=== PATIENT | female | born 2000 ===

== ENCOUNTER 2022-11-15 10:34 | Inpatient (IN) | payer SELFPAY ==
[~2022-11-15] VITALS: Ht 154.9 cm; Wt 54.2 kg
[2022-11-15] VITALS (9 sets, daily range): BP systolic 96–122; BP diastolic 42–80
[2022-11-15] MEDS: LACTATED RINGERS 1,000 ML IV SCH ×2 (11:30→12:20)
--- NOTE | 2022-11-15 12:31 | Diagnostic Imaging Report ---
INDICATION: No care, uncertain size and dates, contractions. TECHNIQUE: Multiple real-time grayscale images were obtained over the gravid uterus. COMPARISON: None Hemphill gestation has measurements correlate with an age 36 week 2 day sonographic date of confinement 12/11/2022 it is in cephalic position. There is a MIKAELA of 8.8 with the zac-fundal placenta appearing normal. No abruption or previa with regular heart rate 142 bpm. head results in shadowing artifact obscuring from visualization a confident measurement of the cervical canal. No pathological finding identified. IMPRESSION: 36 week 2 day hemphill viable IUP in cephalic position. Biometrical measurements are as follows: Biparietal 8.92 cm, age 36 weeks 1 days. Head circumference 31.47 cm, age 35 weeks 3 days. Abdominal circumference 31.61 cm, age 35 weeks 4 days. Femur length 7.34 cm, age 37 weeks 4 days. Sonographic estimate age: 36 weeks 2 days. Sonographic estimated date of delivery: 12/11/2022. Estimated Weight: 2850 gm (+/- 415 gm). LMP percentile: N/A%. heart rate: 142 beats per minute. number: 1 of 1. Dictated by: Dictated on workstation # [id number]
[2022-11-15] MEDS ORDERED: TERBUTALINE INJ 1 MG/ML (BRETHINE) AMP SC ONE ×2 (13:00→14:45)
[2022-11-15 13:36] LABS: BASOPHILS % (AUTO) 1 % (0-10); EOSINOPHILS # (AUTO) 0.4 10^3/uL (0.0-0.3); EOSINOPHILS % (AUTO) 5 % (0-10); HEMATOCRIT 30 % (35-52); HEMOGLOBIN 9.7 g/dL (11.5-16.0); LYMPHOCYTES % (AUTO) 24 % (12-44); MEAN CORPUSCULAR HEMOGLOBIN 25 pg (25-34); MEAN CORPUSCULAR HGB CONC 32 g/dL (32-36); MEAN CORPUSCULAR VOLUME 77 fL (80-99); MEAN PLATELET VOLUME 10.1 fL (9.0-12.2); MONOCYTES # (AUTO) 0.7 10^3/uL (0.0-1.0); MONOCYTES % (AUTO) 9 % (0-12); NEUTROPHILS # (AUTO) 5.1 10^3/uL (1.8-7.8); NEUTROPHILS % (AUTO) 62 % (42-75); PLATELET COUNT 249 10^3/uL (130-400); WHITE BLOOD COUNT 8.3 10^3/uL (4.3-11.0)
[2022-11-15] MEDS ORDERED: TERBUTALINE INJ 1 MG/ML (BRETHINE) AMP ONE (14:42)
--- NOTE | 2022-11-15 18:05 | History & Physical-OB ---
OB - Chief Complaint & HPI Date/Time Date of Admission: Date of Admission: Date seen by a Provider: Nov 15, 2022 Time Seen by a Provider: 18:00 Chief Complaint/History OB-Reason for Admission/Chief: Onset of Labor Hx : 2 Hx Para: 1 Expected Date of Delivery: Nov 23, 2022 Other with language barrier, and history of with first presented with contractions. She initially was thought to have no care and unknown dates and US was done which showed 36w2d, however, later she did report she had one visit in [place] around 7 months she thinks and had US and was given due date of Nov 23. She started having contractions this morning, denies other concerns. Allergies and Home Medications Allergies Coded Allergies: No Known Drug Allergies (Unverified , 11/15/22) Patient Home Medication List Home Medication List Reviewed: Yes OB - History Hx of Present Care: No Obstetrical Complications: None (limited/no care) Information Induced Hypertension: No Maternal Gestational Diabetes: No Hemorrhage: No Obstetrical History Hx : 2 Hx Para: 1 Hx # Term Pregnancies: 1 Hx # Pregnancies: 0 Number of Living Children: 1 Hx Termination: No Hx Total # of Abortions (Spona: 0 Hx Multiple Gestation: No Hx Ectopic : No Hx Stillbirth: No Hx Complication: No Hx Induced Hypertens: No Hx Maternal Gestational Diabet: No Hx Hemorrhage: No Delivery History Hx Dystocia: No Hx Forceps Assisted Delivery: No Hx Vacuum Extraction Assisted: No Hx Placenta Abnormality: No Hx Distress: No Hx Large For Gestational Age I: No Hx Small for Gestational Age I: No Hx Section: Yes Hx Vaginal Delivery Post C-Sec: No Hx Blood Disorders: No Adverse Rxn to Tranfusion: No Patient Past Medical History PMHx: Denies PSurgHx: Social History/Family History Alcohol Use: Denies Use Recreational Drug Use: No Smoking Cessation: Never smoker Immunizations Influenza Vaccine Up-to-Date: No; Not Current Rubella: unknown RPR/VDRL: Unknown GBS Status: Unknown HBsAG: Unknown OB - Admission Exam Physical Exam Vitals: Vital Signs 11/15/22 11:08 Temp 36.7 Pulse 83 Resp 18 B/P (MAP) 119/80 Pulse Ox 99 O2 Delivery Room Air HEENT: NCAT Abdomen: Non tender Extremities: Normal Cervical Dilatation: 3cm (per nursing exam) Accelerations: Accelerations Present Decelerations: No Decelerations Short Term Variability: Present Cinder Block Maker Variability: Average (6-25) Contractions on Admission: < 5 Minutes Apart Labs Laboratory Tests Test 11/15/22 11:30 11/15/22 13:50 Range/Units White Blood Count 8.3 4.3-11.0 10^3/uL Red Blood Count 3.92 3.80-5.11 10^6/uL Hemoglobin 9.7 L 11.5-16.0 g/dL Hematocrit 30 L 35-52 % Mean Corpuscular Volume 77 L 80-99 fL Mean Corpuscular Hemoglobin 25 25-34 pg Mean Corpuscular Hemoglobin Concent 32 32-36 g/dL Red Cell Distribution Width 14.2 10.0-14.5 % Platelet Count 249 130-400 10^3/uL Mean Platelet Volume 10.1 9.0-12.2 fL Immature Granulocyte % (Auto) 1 % Neutrophils (%) (Auto) 62 42-75 % Lymphocytes (%) (Auto) 24 12-44 % Monocytes (%) (Auto) 9 0-12 % Eosinophils (%) (Auto) 5 0-10 % Basophils (%) (Auto) 1 0-10 % Neutrophils # (Auto) 5.1 1.8-7.8 10^3/uL Lymphocytes # (Auto) 2.0 1.0-4.0 10^3/uL Monocytes # (Auto) 0.7 0.0-1.0 10^3/uL Eosinophils # (Auto) 0.4 H 0.0-0.3 10^3/uL Basophils # (Auto) 0.0 0.0-0.1 10^3/uL Immature Granulocyte # (Auto) 0.1 0.0-0.1 10^3/uL Thyroid Stimulating Hormone (TSH) 1.73 0.35-4.94 UIU/ML OB - Assessment/Plan/Diagnosis Assessment Admission Dx Labor Admission Status: Inpatient Order (span 2 midnights) Reason for Inpatient Admission: Labor Plan Plan: Section Other Plan Pt initially 2 cm on arrival, had some slowing of contractions with fluid and terbutaline, but progressed to 3 cm and continues to contract. Discussed with Dr. Shipley and plan to proceed with repeat . Milk Pickup Driver notified as well due to uncertain dates. All routine Ob labs pending, drawn today. JONG HARRIS MD Nov 15, 2022 18:04
[2022-11-15] MEDS ORDERED: ceFAZolin INJECTION 1,000 MG VIAL IV ONE (18:15)
[2022-11-15] MEDS ORDERED: CITRIC ACID/SOB CIT (BICITRA) 30 ML UDC ONE (18:19)
[2022-11-15] MEDS ORDERED: METOCLOPRAMIDE INJ 10 MG/2 ML (REGLAN) ONE (18:19)
[2022-11-15] MEDS ORDERED: FAMOTIDINE 20MG/2ML IV (PEPCID) ONE (18:19)
[2022-11-15] MEDS ORDERED: ceFAZolin INJECTION 2,000 MG ONE (18:19)
[2022-11-15] MEDS ORDERED: NS (IVPB) 50 ML ONE (18:19)
[2022-11-15] MEDS ORDERED: CATHETER FLUSH 10 ML SYR IV PRN (18:30)
[2022-11-15] MEDS ORDERED: LACTATED RINGERS 1,000 ML IV PRN (18:30)
[2022-11-15] MEDS ORDERED: METOCLOPRAMIDE INJ 10 MG/2 ML (REGLAN) IV ONE (18:30)
[2022-11-15] MEDS ORDERED: CITRIC ACID/SOB CIT (BICITRA) 30 ML UDC PO ONE (18:30)
[2022-11-15] MEDS ORDERED: ONDANSETRON 4 MG/2 ML (SDV) Z0FRAN ONE (18:40)
[2022-11-15] MEDS ORDERED: fentaNYL INJ 100 MCG/2 ML AMP ONE (18:41)
[2022-11-15] MEDS ORDERED: FAMOTIDINE 20MG/2ML IV (PEPCID) IV ONE (18:45)
--- NOTE | 2022-11-15 18:55 | History & Physical-Surgical ---
HPO-Surgical History of Present Illness Chief Complaint: 38 week patient by 2nd trimester US presented in active labor, and has history of previous . She was admitted by Dr. Brooks, where labor was attempted to be stopped without success. Diagnosis/Surgical Indication: Active labor, prior Procedure: Repeat Date of Surgery: Nov 15, 2022 Allergies and Home Medications Allergies Coded Allergies: No Known Drug Allergies (Unverified , 11/15/22) Patient Home Medication List Home Medication List Reviewed: Yes Past Dqcunvv-Dhnhfh-Sztiph Hx Patient Social History Smoking Status: Never a Smoker Reproductive System Expected Date of Delivery: Nov 23, 2022 Hx : 2 Hx Para: 1 Hx Total # of Abortions (Spona: 0 Blood Transfusions Adverse Reaction to a Blood Tr: No Exam Vital Signs Vital Signs 11/15/22 11:08 Temp 36.7 Pulse 83 Resp 18 B/P (MAP) 119/80 Pulse Ox 99 O2 Delivery Room Air Capillary Refill : Less Than 3 Seconds Labs Laboratory Tests Test 11/15/22 11:30 11/15/22 13:50 Range/Units White Blood Count 8.3 4.3-11.0 10^3/uL Red Blood Count 3.92 3.80-5.11 10^6/uL Hemoglobin 9.7 L 11.5-16.0 g/dL Hematocrit 30 L 35-52 % Mean Corpuscular Volume 77 L 80-99 fL Mean Corpuscular Hemoglobin 25 25-34 pg Mean Corpuscular Hemoglobin Concent 32 32-36 g/dL Red Cell Distribution Width 14.2 10.0-14.5 % Platelet Count 249 130-400 10^3/uL Mean Platelet Volume 10.1 9.0-12.2 fL Immature Granulocyte % (Auto) 1 % Neutrophils (%) (Auto) 62 42-75 % Lymphocytes (%) (Auto) 24 12-44 % Monocytes (%) (Auto) 9 0-12 % Eosinophils (%) (Auto) 5 0-10 % Basophils (%) (Auto) 1 0-10 % Neutrophils # (Auto) 5.1 1.8-7.8 10^3/uL Lymphocytes # (Auto) 2.0 1.0-4.0 10^3/uL Monocytes # (Auto) 0.7 0.0-1.0 10^3/uL Eosinophils # (Auto) 0.4 H 0.0-0.3 10^3/uL Basophils # (Auto) 0.0 0.0-0.1 10^3/uL Immature Granulocyte # (Auto) 0.1 0.0-0.1 10^3/uL Thyroid Stimulating Hormone (TSH) 1.73 0.35-4.94 UIU/ML General Appearance: Alert, Oriented X3 HEENT: Atraumatic Respiratory: Clear to Auscultation Cardiovascular: Regular Rate Abdominal: Normal Bowel Sounds Psych/Mental Status: Other (language barrier, side show entertainer used) Assessment/Plan Admission Diagnosis Diagnosis: 22 yo @ 38 weeks by 2nd trimester US Previous No care GBS unknown P: Repeat Admission Status: Inpatient Order (span 2 midnights) IRIS LASSITER DO Nov 15, 2022 18:55
[2022-11-15] MEDS: LACTATED RINGERS 1,000 ML IV PRN ×2 (19:05→19:53)
[2022-11-15] MEDS ORDERED: BUPIVACAINE 0.5% 30 ML (SENSORCAINE) VIAL ONE (19:29)
[2022-11-15] MEDS ORDERED: PHENYLEPHRINE 100 MCG/ML 10 ML (ANESTHESIA) SYR ONE (19:30)
[2022-11-15] MEDS ORDERED: OXYTOCIN PRE-MIX DRIP 1,000 ML IV ONE (19:31)
[2022-11-15] MEDS ORDERED: KETOROLAC 30 MG/ML VIAL ONE (20:02)
[2022-11-15] MEDS: KETOROLAC 30 MG/ML VIAL IV SCH (20:04)
[2022-11-15] MEDS ORDERED: NALOXONE 0.4 MG/ML 1 ML (NARCAN) VIAL IV PRN (20:15)
[2022-11-15] MEDS ORDERED: HYDROcodone/APAP 5 MG/325 MG (LORTAB) TAB PO PRN (20:15)
[2022-11-15] MEDS ORDERED: ONDANSETRON 4 MG/2 ML (SDV) Z0FRAN IVP PRN (20:15)
[2022-11-15] MEDS ORDERED: MEASLES,MUMPS,RUBELLA 1 EA INJ SC SCH (20:15)
[2022-11-15] MEDS ORDERED: TETANUS,DIPTH,PERTUSS P/F (BOOSTRIX) 0.5 ML VIAL IM SCH (20:15)
[2022-11-15] MEDS: OXYTOCIN PRE-MIX DRIP 500 ML IV SCH (20:50)
[2022-11-15] MEDS ORDERED: CATHETER FLUSH 10 ML SYR IV SCH (22:00)
[2022-11-16 00:20] VITALS: BP 119/67
[2022-11-16] MEDS: OXYTOCIN PRE-MIX DRIP 500 ML IV SCH (00:20)
[2022-11-16] MEDS: METOCLOPRAMIDE 10 MG (REGLAN) TAB PO SCH ×4 (00:20→21:30)
[2022-11-16] MEDS: DOCUSATE SODIUM 100 MG (COLACE) CAP PO SCH ×3 (00:20→21:29)
--- NOTE | 2022-11-16 02:12 | OPERATIVE REPORT ---
PREOPERATIVE DIAGNOSES: 1. A 22-year-old G2, P1 with no care. 2. Active labor. 3. Previous section. 4. Suspected 38 weeks' gestation. POSTOPERATIVE DIAGNOSES: 1. A 22-year-old G2, P1 with no care. 2. Active labor. 3. Previous section. 4. Suspected 38 weeks' gestation. PROCEDURE: Repeat low transverse section. SURGEON: Oleg Lassiter MD ANESTHESIA: Spinal. ESTIMATED BLOOD LOSS: 400 mL. URINE: 125 mL clear at the end of the procedure. FLUIDS: 1000 mL lactated Ringer's solution. FINDINGS: A live female infant weighing 6 pounds 10 ounces, Apgars of 8 and 9. Grossly normal appearing uterus, bilateral fallopian tubes and ovaries. SPECIMENS SENT: Placenta. INDICATIONS FOR PROCEDURE: This patient presented to our emergency department with contractions and not having any care. She had recently moved from the [facility] and language has been a barrier to her establish care according to the patient and using an administrative asst. I discussed with the patient her active labor and previous will put her at the safest delivery to proceed with repeat . Risks of procedure discussed with the patient in detail. After all of her questions were answered, consent was obtained. The patient was taken to the operating room. OPERATIVE REPORT IN DETAIL: Once in the operating room, spinal analgesia was found to be adequate. She was placed in a supine position with leftward tilt, prepped and draped in normal sterile fashion. A timeout was performed. Anesthesia was tested. I then make an incision through the previously existing scar using knife and carried down to the underlying fascia using Bovie cautery. The superior aspect of the fascial incision was then grasped with Wendy clamps, tented upward and dissected off the underlying rectus muscles. The inferior aspect of the fascial incision was then grasped with Wendy clamps, tented upward and dissected off the underlying rectus muscles. The rectus muscles were dissected down the midline sharply. We exposed the peritoneum, I entered it bluntly using blunt traction. An Cecil ring retractor was placed in the peritoneal incision, which offers excellent lateral sidewall retraction. I identified the lower uterine segment, found to be thinned out. I make a low transverse incision to the vesicouterine peritoneum and bluntly dissected off the lower uterine segment until a bladder flap is developed. Then, I proceeded with my myotomy until membranes were visualized, at which point I extended the uterine incision laterally and superiorly using bandage scissors. Amniotomy was then performed using Allis clamp. Clear fluid was noted. The was found in vertex presentation. With gentle fundal pressure, the infant's head was elevated up to the incision and delivered through the incision where the nares and oropharynx were bulb suctioned. A nuchal cord was reduced x1. Anterior and posterior shoulders were delivered. The infant was then brought to the operative field, where cord was clamped and cut and infant was handed off to waiting nurses in attendance. Cord blood was collected. Three-vessel cord with intact placenta was delivered spontaneously thereafter. IV Pitocin was initiated to facilitate uterine contraction. Uterine fundus confirmed with bimanual massage. The uterus was exteriorized and cleared of all endometrial clots and debris. I then proceeded with closing the uterine incision using 0 Vicryl suture in a running locked fashion. A second layer of imbricating 0 Monocryl was placed. Excellent hemostasis was noted after doing this. I then placed the uterus back in the pelvis and copiously irrigated the pelvis using normal saline. Once again, there was no active bleeding noted from any of my dissection planes. I placed Interceed antiadhesive over my low transverse incision, I removed the Cecil ring retractor and proceeded with closing the rectus and peritoneum in one layer using 3-0 Vicryl suture in a running fashion. The fascia was reapproximated using 0 Vicryl suture in a running fashion. The skin was then reapproximated using 4-0 Monocryl in running subcuticular. Dermabond was applied to incision, sterile dressing with adhesive white tape. The patient tolerated the procedure well and was taken to recovery area in stable condition. Lap and sponge counts were correct at the end of the procedure. Instrument counts correct as well. Two grams of Ancef were given preoperatively for infection prophylaxis. Job ID: [id number] DocumentID: [id number] Dictated Date: 11/15/2022 20:03:45 [employer] Date: 11/16/2022 02:09:00 Dictated By: OLEG LASSITER DO
[2022-11-16] MEDS: KETOROLAC 30 MG/ML VIAL IV SCH ×3 (02:52→16:14)
[2022-11-16 04:20] VITALS: BP 120/66
[2022-11-16 05:51] LABS: BASOPHILS % (AUTO) 0 % (0-10); EOSINOPHILS % (AUTO) 0 % (0-10); HEMATOCRIT 24 % (35-52); HEMOGLOBIN 7.6 g/dL (11.5-16.0); LYMPHOCYTES % (AUTO) 6 % (12-44); MEAN CORPUSCULAR HEMOGLOBIN 25 pg (25-34); MEAN CORPUSCULAR HGB CONC 32 g/dL (32-36); MEAN CORPUSCULAR VOLUME 77 fL (80-99); MEAN PLATELET VOLUME 10.4 fL (9.0-12.2); MONOCYTES # (AUTO) 1.2 10^3/uL (0.0-1.0); MONOCYTES % (AUTO) 7 % (0-12); NEUTROPHILS # (AUTO) 14.1 10^3/uL (1.8-7.8); NEUTROPHILS % (AUTO) 86 % (42-75); PLATELET COUNT 221 10^3/uL (130-400); WHITE BLOOD COUNT 16.4 10^3/uL (4.3-11.0)
--- NOTE | 2022-11-16 09:18 | Anesthesia-Regional Post-Op ---
Regional Patient Condition Mental Status: Alert, Oriented x3 Circulation: Same as Pre-Op Headache: Absent Sensation: Full Recovery Motor Block: Absent Post Op Complications Complications None Follow Up Care/Instructions Patient Instructions None needed. Anesthesia/Patient Condition Patient is doing well, no complaints, stable vital signs, no apparent adverse anesthesia problems. No complications reported per nursing. NAZARIO ALCANTARA CRNA Nov 16, 2022 09:18
--- NOTE | 2022-11-16 09:48 | Postpartum Progress Note ---
Note Note Day # 1 Subjective: Patient is without complaints. Ambulating, voiding. Tolerating a regular diet without nausea or vomiting. Normal lochia. Pain is well controlled with oral pain medications. Objective: Physical Exam: General - Alert and oriented, no apparent distress Abdomen - Soft, appropriately tender to palpation, non-distended, fundus firm at umbilicus Extremities - no edema, negative Perry's bilaterally Incision c/d/i Assessment: POD 1 RLTCS Acute blood loss anemia Plan: Routine care. Encourage breast feeding. Encourage ambulation. Ferrous sulfate supplementation. Plan for discharge tomorrow Vitals - Labs Vital Signs - I&O Vital Signs Date Time Temp Pulse Resp B/P (MAP) Pulse Ox O2 Delivery O2 Flow Rate FiO2 11/16/22 04:20 36.8 78 18 120/66 (84) 98 Room Air 11/16/22 00:20 37.5 88 18 119/67 (84) 97 Room Air 11/15/22 22:30 37.5 93 18 120/64 (82) 98 Room Air 11/15/22 20:50 36.6 20 112/58 (76) 99 Room Air 11/15/22 20:50 Room Air 11/15/22 20:50 37.4 98 18 122/61 (81) 98 Room Air 11/15/22 20:40 Room Air 11/15/22 20:40 18 111/52 (71) 98 Room Air 11/15/22 20:30 18 107/42 (63) 98 Room Air 11/15/22 20:30 Room Air 11/15/22 20:20 18 96/60 (72) 98 Room Air 11/15/22 20:20 Room Air 11/15/22 20:10 Room Air 11/15/22 20:10 18 103/48 (66) 98 Room Air 11/15/22 20:03 Room Air 11/15/22 20:03 36.4 16 105/48 (67) 98 Room Air 11/15/22 18:50 37.3 110 18 101/54 (70) 11/15/22 11:08 36.7 83 18 119/80 99 Room Air I & O 11/16/22 07:00 Intake Total 4400 ml Output Total 485 ml Balance 3915 ml Labs Laboratory Tests 11/15/22 11:30: White Blood Count 8.3, Red Blood Count 3.92, Hemoglobin 9.7L, Hematocrit 30L, Mean Corpuscular Volume 77L, Mean Corpuscular Hemoglobin 25, Mean Corpuscular Hemoglobin Concent 32, Red Cell Distribution Width 14.2, Platelet Count 249, Mean Platelet Volume 10.1, Immature Granulocyte % (Auto) 1, Neutrophils (%) (Auto) 62, Lymphocytes (%) (Auto) 24, Monocytes (%) (Auto) 9, Eosinophils (%) (Auto) 5, Basophils (%) (Auto) 1, Neutrophils # (Auto) 5.1, Lymphocytes # (Auto) 2.0, Monocytes # (Auto) 0.7, Eosinophils # (Auto) 0.4H, Basophils # (Auto) 0.0, Immature Granulocyte # (Auto) 0.1, Thyroid Stimulating Hormone (TSH) 1.73 11/15/22 13:50: Syphilis Serology Non-Reactive, Hepatitis B Surface Antigen Non-Reactive, HIV (1&2) Ag and Ab Screen Referral Non-Reactive, Rubella IgG Antibody 0.93H, Rubella IgG Ab Interpretation EquivocalH, Rubeola (Measles) IgG Antibody 10.6, Rubeola (Measles) IgG Ab Interpret Negative 11/16/22 05:23: White Blood Count 16.4H, Red Blood Count 3.06L, Hemoglobin 7.6#L, Hematocrit 24L , Mean Corpuscular Volume 77L, Mean Corpuscular Hemoglobin 25, Mean Corpuscular Hemoglobin Concent 32, Red Cell Distribution Width 14.2, Platelet Count 221, Mean Platelet Volume 10.4, Immature Granulocyte % (Auto) 1, Neutrophils (%) (Auto) 86H, Lymphocytes (%) (Auto) 6L, Monocytes (%) (Auto) 7, Eosinophils (%) (Auto) 0, Basophils (%) (Auto) 0, Neutrophils # (Auto) 14.1H, Lymphocytes # (Auto) 1.0, Monocytes # (Auto) 1.2H, Eosinophils # (Auto) 0.0, Basophils # (Auto) 0.0, Immature Granulocyte # (Auto) 0.1 IRIS LASSITER DO Nov 16, 2022 09:48
--- NOTE | 2022-11-16 09:50 | Discharge Inst-Women's Service ---
Discharge Inst-Women's Serv Depart Medication/Instructions New, Converted or Re-Newed RX: Transmitted to Pharmacy Problems Reviewed?: Yes Consults/Follow Up Additional Follow Up: Yes Orders/Referrals Dr. Shipley in 7-10 days and EVELYN/Todd in 6 weeks Activity Activity: Activity as Tolerated Driving Instructions: No Driving for 1 Week NO SMOKING: NO SMOKING Nothing Inside Vagina: No Douching, No [place], No Tampons Diet Discharge Diet: No Restrictions Symptoms to Report to : Bleeding Excessive, Pain Increased, Fever Over 101 Degrees F, Vaginal Bleeding Increase, Questions/Concerns For Any Problems or Questions: Contact Your Physician Skin/Wound Care Infection Signs and Symptoms: Increased Redness, Foul Odor of Wound, Increased Drainage, Skin Itchy or Has a Rash, Increased Swelling, Temperature Above 101 F Operative Area Clean and Dry: Keep Incision Clean/Dry Stitches/Abigail/Dermabond: Dermabond, Care of Stitches Bathing Instructions: IRIS Worthington DO Nov 16, 2022 09:50
[2022-11-16] MEDS ORDERED: DOCU100C37 PO (09:51)
[2022-11-16] MEDS ORDERED: FERR325T24 PO (09:51)
[2022-11-16] MEDS ORDERED: ACHD5005 PO (09:51)
[2022-11-16] MEDS ORDERED: IBUP-844 PO (09:51)
[2022-11-16 10:00] VITALS: BP 119/59
[2022-11-16 15:45] VITALS: BP 116/77
[2022-11-16] MEDS: FERROUS SULF 325 MG (IRON) TAB PO SCH (18:48)
[2022-11-16 21:29] VITALS: BP 100/62
[2022-11-16] MEDS: IBUPROFEN 600 MG (MOTRIN) TAB PO SCH (21:30)
[2022-11-17 03:10] VITALS: BP 109/68
[2022-11-17] MEDS: METOCLOPRAMIDE 10 MG (REGLAN) TAB PO SCH ×2 (03:14→09:35)
[2022-11-17] MEDS: IBUPROFEN 600 MG (MOTRIN) TAB PO SCH ×3 (03:14→14:52)
--- NOTE | 2022-11-17 07:26 | Postpartum Progress Note ---
Note Note Day # 2 Subjective: Patient is without complaints. Ambulating, voiding. Tolerating a regular diet without nausea or vomiting. Normal lochia. Pain is well controlled with oral pain medications. Objective: Physical Exam: General - Alert and oriented, no apparent distress Abdomen - Soft, appropriately tender to palpation, non-distended, fundus firm at umbilicus Extremities - no edema, negative Perry's bilaterally Incision- c/d/i Assessment: POD 2 RLTCS Acute blood loss anemia Plan: Routine care. Encourage breast feeding. Encourage ambulation. Ferrous sulfate supplementation. Plan for discharge today Vitals - Labs Vital Signs - I&O Vital Signs Date Time Temp Pulse Resp B/P (MAP) Pulse Ox O2 Delivery O2 Flow Rate FiO2 11/17/22 03:10 36.7 83 18 109/68 (82) 99 Room Air 11/16/22 21:29 37.0 100 18 100/62 (75) 99 Room Air 11/16/22 15:45 36.8 76 18 116/77 (90) 100 Room Air 11/16/22 10:00 36.9 88 18 119/59 (79) 98 Room Air I & O 11/17/22 07:00 Intake Total 2690 ml Balance 2690 ml IRIS LASSITER DO Nov 17, 2022 07:26
[2022-11-17 09:30] VITALS: BP 110/57
[2022-11-17] MEDS: FERROUS SULF 325 MG (IRON) TAB PO SCH (09:35)
[2022-11-17] MEDS: DOCUSATE SODIUM 100 MG (COLACE) CAP PO SCH (09:36)
[2022-11-17 14:55] VITALS: BP 118/77
== END 2022-11-17 16:00 | disposition home or self-care (01) | DRG 787 ==
LOC: LDRP 10:34 → WSo 10:34 → LDRP 18:15
PROVIDERS: ADMIT Obstetrics & Gynecology; ATTEND Obstetrics & Gynecology
PROC: 10D00Z1 Extraction of Products of Conception, Low, Open Approach (ICD-10-PCS; principal; 2022-11-15 19:07)
DX: O34.211 Maternal care for low transverse scar from previous cesarean delivery (principal); D62 Acute posthemorrhagic anemia; Z37.0 Single live birth; Z3A.38 38 weeks gestation of pregnancy; O90.81 Anemia of the puerperium; Z28.310 Unvaccinated for COVID-19; O69.81X0 Labor and delivery complicated by cord around neck, without compression, not applicable or unspecified
CPT/HCPCS: 36415; 36600; 76805; 84443; 85025; 86762; 86765; 86780; 86850; 86900; 86901; 87340; 87389; 94664; 96360; 96361; 96372; 99214